=== PATIENT | female | born 1945 | race Caucasian/White ===

== ENCOUNTER 2025-05-23 10:44 | Emergency (ER) | payer MEDICARE, BC | END 2025-05-23 12:36 | disposition home or self-care (01) | LOC: MW.ED 10:44 | DX: S61.011A Laceration without foreign body of right thumb without damage to nail, initial encounter (principal); E78.00 Pure hypercholesterolemia, unspecified; Z90.710 Acquired absence of both cervix and uterus; Z79.899 Other long term (current) drug therapy; W54.8XXA Other contact with dog, initial encounter | CPT/HCPCS: 12001; 99282; J2003; 99283 ==